=== PATIENT | male | born 1985 | race Caucasian/White ===

== ENCOUNTER 2020-10-11 20:36 | Emergency (ER) | payer BC, OTHER ==
[2020-10-11] MEDS ORDERED: Take Home: Naproxen 500 MG Tab, 4 Tab Pack PO ONE (21:44)
--- NOTE | 2020-10-12 00:27 | EDM.PDOC ---
ED HPI GENERAL MEDICAL PROBLEM - General Chief Complaint: Lower Extremity Injury/Pain Stated Complaint: ANKLE PAIN Time Seen by Provider: 10/11/20 20:36 Source of Information: Reports: Patient - History of Present Illness INITIAL COMMENTS - FREE TEXT/NARRATIVE: Pt. presents to ER with complaints of pain to R ankle. Pt. states that he thinks he twisted wrong, and denies any high speed injury. Denies any numbness/tingling in extremity. No problems with injury to this area in the past. He states that the pain started shortly before coming to ER. Denies taking any medications following the accident. Onset: Today Onset Date: 10/12/20 Treatments RN SURGICAL PCU: Reports: Cold Therapy Right ankle Pain Score (Numeric/FACES): 2 - Related Data Allergies Allergy/AdvReac Type Severity Reaction Status Date / Time No Known Allergies Allergy Verified 10/11/20 21:03 Past Medical History - Past Health History Medical/Surgical History: Denies Medical/Surgical History Social & Family History - Tobacco Use Tobacco Use Status *Q: Unknown Ever Used Tobacco Review of Systems - Review of Systems Review Of Systems: Comprehensive ROS is negative, except as noted in HPI. ED EXAM, GENERAL - Physical Exam Exam: See Below Exam Limited By: No Limitations General Appearance: Alert, WD/WN, No Apparent Distress Extremities: Leg Pain (point tenderness to lateral aspect of ankle. No obvious deformity. CMS intact. Drawer test negative. No crepitus.) Skin Exam: Warm, Dry, Intact, Normal Color, No Rash Course - Vital Signs Last Recorded V/S: Last Vital Signs Temp 36.9 C 10/11/20 20:36 Pulse 74 10/11/20 20:36 Resp 16 10/11/20 20:36 BP 137/82 10/11/20 20:36 Pulse Ox 97 10/11/20 20:36 - Orders/Labs/Meds Orders: Active Orders 24 hr Category Date Time Status Ankle Min 3V Rt [CR] Stat Exams 10/11/20 21:04 Taken DME for Discharge [COMM] Stat Oth 10/11/20 21:42 Ordered Meds: Medications Discontinued Medications Generic Name Dose Route Start Last Admin Trade Name Freq PRN Reason Stop Dose Admin Naproxen 1 packet 10/11/20 21:44 Take Home: Naproxen 500 Mg Tab, 4 Tab Pack PO 10/12/20 00:05 ONETIME ONE - Radiology Interpretation Free Text/Narrative:: Radiographs of R ankle obtained. No acute fracture or dislocation noted. Incidental finding of 2mm old fracture fragment, but no acute injury noted. Departure - Departure Time of Disposition: 21:45 Disposition: Home, Self-Care 01 Clinical Impression: Right ankle sprain - Discharge Information Instructions: Ankle Sprain, Naproxen and naproxen sodium oral immediate-release tablets Referrals: Willie Clark MD [Primary Care Provider] - Additional Instructions: Use STEPHANIE wrap for support. Crutch use as needed. Off work today and tomorrow if needed due to injury. Naproxen 500mg 1 twice daily for 10 days as needed for pain Ice ankle for 10-15 min every hour Elevate extremity above heart recheck in clinic in 10-14 days, sooner if not gradually improving. Sepsis Event Note (ED) - Focused Exam Vital Signs: Vital Signs Temp Pulse Resp BP Pulse Ox 10/11/20 20:36 36.9 C 74 16 137/82 97 - My Orders Last 24 Hours: My Active Orders 10/11/20 21:04 Ankle Min 3V Rt [CR] Stat 10/11/20 21:42 DME for Discharge [COMM] Stat - Assessment/Plan Last 24 Hours: My Active Orders 10/11/20 21:04 Ankle Min 3V Rt [CR] Stat 10/11/20 21:42 DME for Discharge [COMM] Stat Plan: Use STEPHANIE wrap for support. Crutch use as needed. Off work today and tomorrow if needed due to injury. Naproxen 500mg 1 twice daily for 10 days as needed for pain Ice ankle for 10-15 min every hour Elevate extremity above heart recheck in clinic in 10-14 days, sooner if not gradually improving.
--- NOTE | 2020-10-12 07:52 | CR ---
[id number] RAD/RAD Ankle Right 3V Min EXAM: RAD Ankle Right 3V Min CLINICAL DATA: TRAUMA COMPARISON: No previous similar exam is available. FINDINGS: No fracture or dislocation is seen. There is no radiopaque foreign body in the soft tissues. There is no air in the soft tissues. There is no cortical thickening or periosteal reaction either. IMPRESSION: NEGATIVE PLAIN FILM EXAM. Asher Jolley MD 10/12/20 [id number] Thank you for allowing us to participate in the care of your patient.
== END 2020-10-11 22:00 | disposition home or self-care (01) ==
LOC: VM.ED 20:36
DX: S93.401A Sprain of unspecified ligament of right ankle, initial encounter (principal); X50.1XXA Overexertion from prolonged static or awkward postures, initial encounter
CPT/HCPCS: 73610-RT; 99283; 99283-25

== ENCOUNTER 2021-11-27 04:25 | Emergency (ER) | payer SELFPAY | END 2021-11-27 04:51 | disposition home or self-care (01) | LOC: VM.ED 04:25 | DX: K02.9 Dental caries, unspecified (principal) | CPT/HCPCS: 99282; 99283 ==

== ENCOUNTER 2023-07-28 00:40 | Emergency (ER) | payer SELFPAY ==
[2023-07-28] MEDS: Take Home: Amoxicillin 875 MG Tab, 2 Tab Pack PO ONE (03:52)
== END 2023-07-28 01:42 | disposition home or self-care (01) ==
LOC: VM.ED 00:40
DX: K08.89 Other specified disorders of teeth and supporting structures (principal); Z79.2 Long term (current) use of antibiotics
CPT/HCPCS: 99282; A9270; 99283